=== PATIENT | male | born 1975 | race African-American/Black ===

== ENCOUNTER 2016-04-23 11:13 | Emergency (ER) | payer OTHER, MEDICARE ==
[~2016-04-23] VITALS: Ht 180.3 cm; Wt 102.1 kg
[~2016-04-23 11:13] MED LIST: AMLODIPINE BESY10 M1 PO; ATORVASTATIN CA20 M1 PO; BENADRYL25 MG PO; CALCIUM ACETAT667 M3 PO; CARVEDILOL12.5 M1 PO; CARVEDILOL25 M1 PO; LISINOPRIL30 M1 PO; MINOXIDIL2.5 M1 PO; MONTELUKAST SOD10 M1 PO; NEPHRO-VITE TA0.8 MG PO; PAIN RELIEVER325 MG PO; PANTOPRAZOLE SO40 M1 PO; PHENYTOIN SODI100 MG PO; POLYETHYLENE GL17 GM PO
--- NOTE | 2016-04-23 11:28 | NUR ---
PT BIBA FROM DIALYSIS FOR EVAL OF HYPOTENSIVE EVENT, DIZZINESS, TACHYCARDIA, AND 5/10 PRESSURE IN CENTER OF CHEST WHEN DIALYSIS TREATMENT BEGAN. PRE EMS, PT WAS ORTHOSTATIC AT 104/64 LYING, THEN 84/60 WHEN SAT UP. THEY INFUSED NS BOLUS OF 200ML AND PRESSURE WAS THEN 96/65. EMS 12 LEAD SHOWED LATERAL ISCHEMIA. PT BP UPON ARRIVAL IS NOW 104/51. PT HAS A RECENT HX OF ENDOCARDITIS. HE HAS BEEN CHANGED INTO GOWN. EKG DONE AND SHOWN TO DR. PAULINO. DR. PAULINO AT BEDSIDE TO EXAMINE.
--- NOTE | 2016-04-23 12:03 | NUR ---
DR. PRICE AT BEDSIDE. ADENOSINE, 6MG, AND CARDIZEM 5MG, ADMINISTERED PER EMAR. PT RESPONDED WELL. HR NOW 77. PT A/O X 3. NS INFUSING AT 100ML/HR PER DR. PULIDO. WILL CONTINUE TO MONITOR.
--- NOTE | 2016-04-23 12:15 | ED GENERAL ADULT ---
History of Present Illness General Chief Complaint: General Adult Stated Complaint: BIBA, HYPOTENSIVE Source: patient Exam Limitations: no limitations Vital Signs & Intake/Output Vital Signs & Intake/Output Vital Signs Date Time Temp Pulse Resp B/P Pulse O2 O2 Flow FiO2 Ox Delivery Rate 04/23 1325 97.8 84 16 130/79 97 Room Air ED Intake and Output 04/24 0000 02 1200 Intake Total 400 Output Total Balance 400 Intake, IV 400 Patient 225 lb Weight Allergies Coded Allergies: oxacillin (Intermediate, RASH 02/27/16) Reconcile Medications Acetaminophen (Pain Reliever) 325 MG TABLET 1 TAB PO PRN PAIN (Reported) Amlodipine Besylate 10 MG TABLET 1 TAB PO DAILY HEART (Reported) Atorvastatin Calcium 20 MG TABLET 1 TAB PO DAILY CHOLESTEROL (Reported) Calcium Acetate 667 MG CAPSULE 2 CAP PO TID SUPPLEMENT (Reported) Carvedilol 25 MG TABLET 25 MG PO BID HTN Diltiazem HCl (Cardizem Cd) 120 MG CAP.ER.24H 1 TAB PO DAILY SVT Diphenhydramine HCl (Benadryl) 25 MG CAPSULE 1 CAP PO PRN ITCHING (Reported) Minoxidil 2.5 MG TABLET 2 TAB PO DAILY UNKNOWN (Reported) Montelukast Sodium 10 MG TABLET 1 TAB PO DAILY ALLERGIES (Reported) Nephro-Vitamins (Nephro-Angel Tablet) 0.8 MG TABLET 1 TAB PO DAILY SUPPLEMENT (Reported) Pantoprazole Sodium 40 MG TABLET.DR 1 TAB PO DAILY GI (Reported) Phenytoin Sodium Extended 100 MG CAPSULE 1 CAP PO Q8 SEIZURES (Reported) Polyethylene Glycol 3350 17 GRAM POWD.PACK 1 PAC PO DAILY CONSTIPATION ( Reported) Triage Note: PT BIBA FROM DIALYSIS FOR EVAL OF HYPOTENSIVE EVENT, DIZZINESS, TACHYCARDIA, AND 5/10 PRESSURE IN CENTER OF CHEST WHEN DIALYSIS TREATMENT BEGAN. PRE EMS, PT WAS ORTHOSTATIC AT 104/64 LYING, THEN 84/60 WHEN SAT UP. THEY INFUSED NS BOLUS OF 200ML AND PRESSURE WAS THEN 96/65. EMS 12 LEAD SHOWED LATERAL ISCHEMIA. PT BP UPON ARRIVAL IS NOW 104/51. PT HAS A RECENT HX OF ENDOCARDITIS. HE HAS BEEN CHANGED INTO GOWN. EKG DONE AND SHOWN TO DR. PAULINO. DR. PAULINO AT BEDSIDE TO EXAMINE. Triage Nurses Notes Reviewed? yes Onset: Abrupt Duration: hour(s): Timing: recent history HPI: 2/3/17 12:00 PM 41-year-old male presents to the emergency department for chest pain and hypotension. The patient was at dialysis today and he was found to be tachycardic, complaining of chest pain, and being profoundly hypotensive. He was emergently transferred to the ED for evaluation. EKG shows tachycardia in the rate of about [address] segment depressions. His belt builder Dr. Fields was paged after the patient was placed on oxygen and a child monitor. Adenosine 6 mg IV push was attempted as the patient has a history of atypical atrial tachycardia. He did not respond to this and so Cardizem 5 mg was administered IV push. The patient responded and his chest pain resolved. Onset of the symptoms was abrupt, the duration was just today, the severity was significant as his symptoms required him to come to the emergency department for care Past History Travel History [facility] past 21 day No Medical History Any Pertinent Medical History? 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, ENDOCARDITIS SEIZURES, ACUTE KIDNEY INJURY EENT: NONE Cardiovascular: hypertension, MITRAL VALVE REPAIR ,ENDOCARDITIS Respiratory: NONE Gastrointestinal: GERD Hepatic: NONE Renal: ESRD on HD Musculoskeletal: NONE Psychiatric: NONE Endocrine: NONE Blood Disorders: anemia Cancer(s): NONE LAWYER PROBATE/Reproductive: NONE History of MRSA: No History of VRE: No History of CDIFF: No Surgical History Surgical History: non-contributory Psychosocial History Who do you live with Significant Other What is your primary language Portuguese Tobacco Use: Current Not Daily ETOH Use: denies use Illicit Drug Use: denies illicit drug use Family History Family History, If Any: Relation not specified for: FH: HTN (hypertension) Hx Contributory? No Review of Systems Review of Systems Constitutional: Denies: fever. EENTM: Denies: visual changes. Respiratory: Denies: short of breath. Cardiovascular: Reports: chest pain. GI: Reports: no symptoms. Genitourinary: Reports: see HPI. Musculoskeletal: Reports: see HPI. Skin: Reports: no symptoms. Neurological/Psychological: Reports: no symptoms. Hematologic/Endocrine: Reports: no symptoms. Immunologic/Allergic: Reports: no symptoms. Physical Exam Physical Exam General Appearance: alert, awake, anxious, moderate distress Head: atraumatic, normal appearance Eyes: Bilateral: normal appearance, PERRL, EOMI. Ears, Nose, Throat: normal pharynx, normal ENT inspection Neck: normal inspection, supple Respiratory: normal breath sounds, chest non-tender, no respiratory distress Cardiovascular: tachycardic Peripheral Pulses: 3+ radial (R), 3+ radial (L) Gastrointestinal: non-tender Back: normal range of motion Extremities: pedal edema Neurologic/Psych: no motor/sensory deficits, awake, alert, oriented x 3 Skin: intact, normal color, warm/dry Core Measures ACS in differential dx? Yes CVA/TIA Diagnosis: No Severe Sepsis Present: No Septic Shock Present: No Progress Differential Diagnoses I considered the following diagnoses in my evaluation of the patient: [ SVT, pulmonary embolism, aortic dissection, acute coronary syndrome,] Plan of Care: Orders Procedure Date/time Status Intake & Output 04/23 1355 Active Code Status 04/23 1307 Active Patient Data 04/23 1254 Active troponin negative, potassium normal, no significant anemia. chest x-ray was negative (CECI PAULINO DO) Initial ED EKG: sinus tach, vs SVT, LAT S-T DEPRESSION Prior EKG: changed Repeat EKG: unchanged (AFTER CARIZEM LVH) Departure Departure Disposition: STILL A PATIENT Condition: Stable Clinical Impression Primary Impression: Chest pain Secondary Impressions: SVT (supraventricular tachycardia) Referrals: UNKNOWN (PCP) Departure Forms: Customer Survey General Discharge Information Prescriptions: Current Visit Scripts Diltiazem HCl (Cardizem Cd) 1 TAB PO DAILY #15 Comments 04/23/16 1:48 PM The patient's symptoms completely resolved. He was unable to stay due to a special needs child at home. He had active chest pain with EKG changes. He signed out AGAINST MEDICAL ADVICE the risk of , heart attack (acute myocardial infarction) was explained to him and he understood the risks. An alternative care of plan was arranged. He was reevaluated by the belt builder. We will give him Cardizem 120 mg long-acting. He will follow-up with the belt builder as scheduled on tuesday or return to the emergency department if worse Admission Note Spoke With: NANCY FIELDS MD, V. Documentation of Exam: Documentation of any treatments & extenuating circumstances including Concerns Regarding Discharge (functional status, medication knowledge or non-compliance, living conditions, etc.) that warrant an admission rather than observation: [ Patient needs admission to the telemetry unit for ongoing cardiac monitoring, inpatient echocardiogram, cardiology consultation, inpatient dialysis] Critical Care Note Critical Care Note Critical Care Time: 30-74 min
[2016-04-23 12:21] LABS: ABSOLUTE BASOPHIL COUNT 0.1 /CUMM (0.0-0.2); ABSOLUTE EOSINOPHIL COUNT 0.7 /CUMM (0.0-0.7); ABSOLUTE GRANULOCYTE CT 5.2 /CUMM (1.4-6.5); ABSOLUTE LYMPH COUNT 2.1 /CUMM (1.2-3.4); ABSOLUTE MONOCYTE COUNT 0.3 /CUMM (0.10-0.60); BASOPHIL % 0.7 % (0.0-2.0); EOSINOPHIL % 8.7 % (0-5); GRANULOCYTE % 61.5 % (42.2-75.2); HEMATOCRIT 32.2 % (42-52); MEAN CORPUSCULAR HGB 29.9 PG (27.0-31.0); MEAN CORPUSCULAR HGB CONC 32.5 G/DL (33.0-37.0); MEAN PLATELET VOLUME 8.3 FL (7.4-10.4); PLATELET COUNT 122 /CUMM (130-400); RBC DISTRIBUTION WIDTH 15.9 % (11.5-14.5); WHITE BLOOD CELL COUNT 8.5 /CUMM (4.8-10.8)
--- NOTE | 2016-04-23 12:26 | NUR ---
EKG PERFORMED AND SHOWN TO DR. PAULINO.
--- NOTE | 2016-04-23 12:48 | NUR ---
CRITICAL TEST RESULTS [id number] JANNET DANIEL 41 [place] TESTS AND RESULTS: CREATININE 10.8 Results received and read back by: KELLE VELAZQUEZ Results received date and time: 04/23/16 1248 The following provider was notified of the results, and read the results back: DR. PAULINO Notified date and time: 04/23/16 at 1248
--- NOTE | 2016-04-23 12:58 | RADIOLOGY REPORT ---
EXAMINATION: XR PORTABLE CHEST CLINICAL INFORMATION: Chest pain. Shortness of breath. COMPARISON: Chest x-ray dated 03/03/2016 TECHNIQUE: Portable AP view of the chest was obtained. FINDINGS: Status post median sternotomy. Mitral annular ring noted again. Stable cardiomegaly. No acute airspace opacity. Visualized bony thorax is intact. IMPRESSION: 1. No acute pulmonary disease. 2. Stable cardiomegaly.
[2016-04-23 13:25] VITALS: BP 130/79
--- NOTE | 2016-04-23 13:26 | NUR ---
PT ADMITTED TO ROOM 171
--- NOTE | 2016-04-23 13:52 | NUR ---
DIALYSIS NURSE AT BEDSIDE FOR DIALYSIS ACCESS REMOVAL FROM LEFT FOREARM
[2016-04-23] MEDS ORDERED: CARDIZEM CD120 M2 PO (13:55)
--- NOTE | 2016-04-23 13:56 | NUR ---
PT SIGNED AMA DOCUMENTATION, BOTH IVS REMOVED. HARVESTING MANAGER REMAINS AT BEDSIDE FOR ACCESS REMOVAL. VSS.
--- NOTE | 2016-04-23 14:03 | NUR ---
PT AMBULATES WITH STEADY GAIT. NO ACTIVE BLEEDING. SCRIPT GIVEN FOR CARDIZEM, WILL RETURN WITH WORSENING SYMPTOMS
--- NOTE | 2016-04-23 14:05 | Cons- Pulmonary ---
General Information and HPI Consulting Request Date of Consult: 04/23/16 Requested By: ed History of Present Illness: This a gentleman with previous history of supraventricular tachycardia, was on dialysis, was sent in from dialysis as he was tachycardic with hypotension. When he came in here he was found to have significant tachycardia and was given Cardizem Unasyn. Subsequently he improved. In is doing well. As he was hypotensive. He is being considered for admission to intensive care unit. He has had previous history of mitral valve replacement and has had recurrent SVT. He has had previous history of MSSA infection as well and that he has had the history suggestive of noncompliance with medication. No nausea vomiting diarrhea. No fever no chills. No other history suggestive of any abdominal discomfort or pain. He has chronic renal failure on dialysis due to uncontrolled hypertension. He does not smoke or drink at this present time. In the past. He has had bilateral lung nodules and significant lymphadenopathy in the left supraclavicular area which needs to be followed. He has dialysis catheter in the left side. Past history as noted above. Patient was also has history of stroke from his endocarditis and he's been on antiseizure medication. Allergies/Medications Allergies: Coded Allergies: oxacillin (Intermediate, RASH 02/27/16) Home Med List: Acetaminophen (Pain Reliever) 325 MG TABLET 1 TAB PO PRN PAIN (Reported) Amlodipine Besylate 10 MG TABLET 1 TAB PO DAILY HEART (Reported) Atorvastatin Calcium 20 MG TABLET 1 TAB PO DAILY CHOLESTEROL (Reported) Calcium Acetate 667 MG CAPSULE 2 CAP PO TID SUPPLEMENT (Reported) Carvedilol 25 MG TABLET 25 MG PO BID HTN Diltiazem HCl (Cardizem Cd) 120 MG CAP.ER.24H 1 TAB PO DAILY SVT Diphenhydramine HCl (Benadryl) 25 MG CAPSULE 1 CAP PO PRN ITCHING (Reported) Minoxidil 2.5 MG TABLET 2 TAB PO DAILY UNKNOWN (Reported) Montelukast Sodium 10 MG TABLET 1 TAB PO DAILY ALLERGIES (Reported) Nephro-Vitamins (Nephro-Angel Tablet) 0.8 MG TABLET 1 TAB PO DAILY SUPPLEMENT (Reported) Pantoprazole Sodium 40 MG TABLET.DR 1 TAB PO DAILY GI (Reported) Phenytoin Sodium Extended 100 MG CAPSULE 1 CAP PO Q8 SEIZURES (Reported) Polyethylene Glycol 3350 17 GRAM POWD.PACK 1 PAC PO DAILY CONSTIPATION ( Reported) Review of Systems Review of Systems Constitutional: Reports: see HPI. 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 ENDOCARDITIS SEIZURES, ACUTE KIDNEY INJURY EENT: NONE Cardiovascular: hypertension, MITRAL VALVE REPAIR ,ENDOCARDITIS Respiratory: NONE Gastrointestinal: GERD Hepatic: NONE Renal: ESRD on HD Musculoskeletal: NONE Psychiatric: NONE Endocrine: NONE Blood Disorders: anemia Cancer(s): NONE OPHTHALMIC ASST/Reproductive: NONE Surgical History Surgical History: non-contributory Family History Relations & Conditions If Any: Relation not specified for: FH: HTN (hypertension) Psychosocial History ETOH Use: denies use Illicit Drug Use: denies illicit drug use Exam & Diagnostic Data Last 24 Hrs of Vital Signs/I&O Vital Signs Date Time Temp Pulse Resp B/P Pulse O2 O2 Flow FiO2 Ox Delivery Rate 04/23 1325 97.8 84 16 130/79 97 Room Air 04/23 1239 76 16 109/57 100 Nasal 2.0L Cannula 04/23 1213 78 16 86/48 100 Nasal 2.0L Cannula 04/23 1210 138 16 88/54 04/23 1202 138 15 88/52 04/23 1140 138 15 87/48 99 Nasal 2.0L Cannula 04/23 1131 99 Nasal 2.0L Cannula 04/23 1127 97.3 137 16 104/51 99 Nasal 2.0L Cannula Intake & Output 04/23 1600 /03 0800 04/23 0000 Intake Total 400 Output Total Balance 400 Intake, IV 400 Patient 225 lb Weight Last 48 Hrs of Labs/Tavo: Laboratory Tests 04/23/16 1205: Anion Gap 19 H, Estimated GFR 5 L, BUN/Creatinine Ratio 5.0 L, Glucose 69, Calcium 8.6, Total Bilirubin 0.7, AST 34, ALT 62, Alkaline Phosphatase 149 H, Troponin I 0.02, Total Protein 6.3, Albumin 4.0, Globulin 2.3, Albumin/Globulin Ratio 1.7, D-Dimer 312 H, CBC w Diff NO MAN DIFF REQ, RBC 3.50 L, MCV 92.0, MCH 29.9, RDW 15.9 H, MPV 8.3, Gran % 61.5, Lymphocytes % 25.2, Monocytes % 3.9 , Eosinophils % 8.7 H, Basophils % 0.7, Absolute Granulocytes 5.2, Absolute Lymphocytes 2.1, Absolute Monocytes 0.3, Absolute Eosinophils 0.7, Absolute Basophils 0.1, PUBS MCHC 32.5 L Assessment/Plan Impression/Plan: Exam: General: Patient awake alert oriented without any distress but appears exhausted CVS: S1 plus S2 without any murmur or gallops Chest: Few scattered crepitation without any wheeze. There is no respiratory distress. Abdomen: Soft nontender, bowel sound present, no guarding or rebound SLITTER SERVICE AND SETTER: Awake alert oriented without any focal neuro deficit and follows command appropriately Extremities: 1-2+ leg bilateral edema; no clubbing or cyanosis noted Unremarkable with mitral annular ring noted. CT scan of the chest. 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 Chest pain chest discomfort while he was having SVT, probably related to rate related angina. No cardiac enzymes up positive. At this present time. This needs to be followed. End-stage renal disease due to previous hypertension needs dialysis. Previous history of lung nodules bilaterally probably related to fluid overload versus any other pathology with the lymphadenopathy in the left supraclavicular, axillary area which needs to be investigated to rule out any other cause. Hypertension, GERD, chronic constipation, hyperlipidemia, previous allergic rhinitis with mild wheezing appears to be stable at this present time. RECOMMENDATION Admitted to cardiology service. Rule out CO. Continue to monitor him cardiac vanegas. Call renal for dialysis. After dialysis. Patient should have a CT scan of the chest without contrast to evaluate bilateral lung lesions. He had recently and his lymphadenopathy in the left side, especially in the supraclavicular and axillary area. Watch for any evidence of infection. Blood cultures were ordered. Will await report Consult Acknowledgment - Thank you for your consult request.
--- NOTE | 2016-04-23 14:14 | Cons- Cardiology ---
General Information and HPI Consulting Request Date of Consult: 04/23/16 Requested By: FERMIN AGOSTO MD Reason for Consult: Recurrent supraventricular tachycardia Source of Information: patient, old records Exam Limitations: no limitations History of Present Illness: The patient is a 41-year-old -[place] man with end-stage renal disease on hemodialysis. He also has a history of heart disease with previous endocarditis, CVA, mitral valve replacement and angioplasty and annuloplasty in October 2015. This was apparently done at [place] and the details are unknown at this time. The patient was sent to the emergency department in February 2016 after having tachycardia during his hemodialysis session. He was found to be in supraventricular tachycardia which broke transiently when he was given IV beta britton therapy. However it recurred and he was recommended for admission. The patient was actually here a few days prior for the same condition in the emergency department. At that time he left AMA after his tachycardia improved. On the February admission the patient was watched overnight and did okay. He was scheduled for echocardiogram etc. but he signed out AMA early in the morning. He was sent out on carvedilol 25 mg twice a day. Today the patient had recurrent episode of supraventricular tachycardia again during dialysis and was sent to the emergency room. In the emergency room he was found to be in supraventricular tachycardia at a rate of 135 and was given 6 mg of adenosine which did not convert, him but later he was given Cardizem a total of 20 mg IV and this did convert him. He was initially hypotensive but after he converted back to sinus rhythm and given some IV fluids his blood pressure came up. He did not have any chest pain at this time. His lab work showed a BUN of 54, creatinine 10.8, troponin 0.02. Chest x-ray was unremarkable. Allergies/Medications Allergies: Coded Allergies: oxacillin (Intermediate, RASH 02/27/16) Home Med List: Acetaminophen (Pain Reliever) 325 MG TABLET 1 TAB PO PRN PAIN (Reported) Amlodipine Besylate 10 MG TABLET 1 TAB PO DAILY HEART (Reported) Atorvastatin Calcium 20 MG TABLET 1 TAB PO DAILY CHOLESTEROL (Reported) Calcium Acetate 667 MG CAPSULE 2 CAP PO TID SUPPLEMENT (Reported) Carvedilol 25 MG TABLET 25 MG PO BID HTN Diltiazem HCl (Cardizem Cd) 120 MG CAP.ER.24H 1 TAB PO DAILY SVT Diphenhydramine HCl (Benadryl) 25 MG CAPSULE 1 CAP PO PRN ITCHING (Reported) Minoxidil 2.5 MG TABLET 2 TAB PO DAILY UNKNOWN (Reported) Montelukast Sodium 10 MG TABLET 1 TAB PO DAILY ALLERGIES (Reported) Nephro-Vitamins (Nephro-Angel Tablet) 0.8 MG TABLET 1 TAB PO DAILY SUPPLEMENT (Reported) Pantoprazole Sodium 40 MG TABLET.DR 1 TAB PO DAILY GI (Reported) Phenytoin Sodium Extended 100 MG CAPSULE 1 CAP PO Q8 SEIZURES (Reported) Polyethylene Glycol 3350 17 GRAM POWD.PACK 1 PAC PO DAILY CONSTIPATION ( Reported) Review of Systems Review of Systems: He has no complaints in the review of systems. 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 ENDOCARDITIS SEIZURES, ACUTE KIDNEY INJURY EENT: NONE Cardiovascular: hypertension, MITRAL VALVE REPAIR ,ENDOCARDITIS Respiratory: NONE Gastrointestinal: GERD Hepatic: NONE Renal: ESRD on HD Musculoskeletal: NONE Psychiatric: NONE Endocrine: NONE Blood Disorders: anemia Cancer(s): NONE REHABILITATION THERAPIST/Reproductive: NONE Surgical History Surgical History: non-contributory Family History Relations & Conditions If Any: Relation not specified for: FH: HTN (hypertension) Psychosocial History ETOH Use: denies use Illicit Drug Use: denies illicit drug use Exam & Diagnostic Data Vital Signs and I&O Vital Signs Date Time Temp Pulse Resp B/P Pulse O2 O2 Flow FiO2 Ox Delivery Rate 04/23 1325 97.8 84 16 130/79 97 Room Air 04/23 1239 76 16 109/57 100 Nasal 2.0L Cannula 04/23 1213 78 16 86/48 100 Nasal 2.0L Cannula 04/23 1210 138 16 88/54 04/23 1202 138 15 88/52 04/23 1140 138 15 87/48 99 Nasal 2.0L Cannula 04/23 1131 99 Nasal 2.0L Cannula 04/23 1127 97.3 137 16 104/51 99 Nasal 2.0L Cannula Intake & Output 04/23 1600 04/23 0800 04/23 0000 04/22 1600 04/22 0800 04/22 0000 Intake Total 400 Output Total Balance 400 Intake, IV 400 Patient 225 lb Weight Physical Exam: When I initially saw him he was uncomfortable from the tachycardia. His physical was remarkable except for rapid tachycardia on exam. The rest of his physical was unremarkable. Labs/Tavo Results: Laboratory Tests 04/23 1205 Chemistry Sodium (137 - 145 mmol/L) 142 Potassium (3.5 - 5.1 mmol/L) 4.2 Chloride (98 - 107 mmol/L) 107 Carbon Dioxide (22 - 30 mmol/L) 16 L Anion Gap (5 - 16) 19 H BUN (9 - 20 mg/dL) 54 H Creatinine (0.7 - 1.2 mg/dL) 10.8 *H Estimated GFR (>60 ml/min) 5 L BUN/Creatinine Ratio (7 - 25 %) 5.0 L Glucose (65 - 99 mg/dL) 69 Calcium (8.4 - 10.2 mg/dL) 8.6 Total Bilirubin (0.2 - 1.3 mg/dL) 0.7 AST (17 - 59 U/L) 34 ALT (21 - 72 U/L) 62 Alkaline Phosphatase (< 127 U/L) 149 H Troponin I (<0.11 ng/ml) 0.02 Total Protein (6.3 - 8.2 g/dL) 6.3 Albumin (3.5 - 5.0 g/dL) 4.0 Globulin (1.9 - 4.2 gm/dL) 2.3 Albumin/Globulin Ratio (1.1 - 2.2 %) 1.7 Coagulation D-Dimer (70 - 232 ng/ml) 312 H Hematology CBC w Diff NO MAN DIFF REQ WBC (4.8 - 10.8 /CUMM) 8.5 RBC (4.70 - 6.10 /CUMM) 3.50 L Hgb (14.0 - 18.0 G/DL) 10.5 L Hct (42 - 52 %) 32.2 L MCV (80.0 - 94.0 FL) 92.0 MCH (27.0 - 31.0 PG) 29.9 RDW (11.5 - 14.5 %) 15.9 H Plt Count (130 - 400 /CUMM) 122 L MPV (7.4 - 10.4 FL) 8.3 Gran % (42.2 - 75.2 %) 61.5 Lymphocytes % (20.5 - 51.1 %) 25.2 Monocytes % (1.7 - 9.3 %) 3.9 Eosinophils % (0 - 5 %) 8.7 H Basophils % (0.0 - 2.0 %) 0.7 Absolute Granulocytes (1.4 - 6.5 /CUMM) 5.2 Absolute Lymphocytes (1.2 - 3.4 /CUMM) 2.1 Absolute Monocytes (0.10 - 0.60 /CUMM) 0.3 Absolute Eosinophils (0.0 - 0.7 /CUMM) 0.7 Absolute Basophils (0.0 - 0.2 /CUMM) 0.1 PUBS MCHC (33.0 - 37.0 G/DL) 32.5 L Diagnostic Data EKG Results The EKG showed a supraventricular tachycardia rate of 138. There is LVH and ST- T wave abnormalities. Repeat EKG shows sinus rhythm rate of 70 with LVH. CXR Results Chest x-ray was normal Assessment/Plan Assessment/Plan The patient has recurrent supraventricular tachycardia. He is on full-dose carvedilol but did break through with another episode. He was converted back with Cardizem. I've recommended putting him on oral Cardizem. The patient was scheduled for admission but is signing out AGAINST MEDICAL ADVICE. We will give him Cardizem 120 mg daily and he is already scheduled to see me in the office next week and he promises to follow-up there. Copies To: DALE GRIER,RAMANDEEP Van Consult Acknowledgment - Thank you for your consult request.
== END 2016-04-23 14:02 | disposition left against medical advice (07) ==
LOC: ENRESERVDT → ENRESERVTM → ENRESERV → ERH 11:13 → ERHI 13:04 → ERH 13:04 → ERHI 14:02
PROVIDERS: Emergency Medicine
DX: I47.1 Supraventricular tachycardia (principal); N18.6 End stage renal disease; I12.0 Hypertensive chronic kidney disease with stage 5 chronic kidney disease or end stage renal disease; Z95.2 Presence of prosthetic heart valve; Z99.2 Dependence on renal dialysis; K21.9 Gastro-esophageal reflux disease without esophagitis; Z86.73 Personal history of transient ischemic attack (TIA), and cerebral infarction without residual deficits; R91.8 Other nonspecific abnormal finding of lung field; R59.1 Generalized enlarged lymph nodes; E78.5 Hyperlipidemia, unspecified
CPT/HCPCS: ERO; 87040; 93005; 93010; 96374; 96375; 99291; J0153